=== PATIENT | male | born 1975 | race Caucasian/White ===

== ENCOUNTER 2016-11-11 10:06 | Emergency (ER) | payer MEDICAID ==
[~2016-11-11] VITALS: Ht 167.6 cm; Wt 89.8 kg
[2016-11-11 10:54] LABS: BASOPHIL % 0.5 % (0-2); PLATELET COUNT 190 x10^3mcL (130-400); RED CELL DISTRIBUTION WIDTH 13.1 % (11.5-14.5)
[2016-11-11 11:07] LABS: CALCIUM 8.7 mg/dL (8.5-10.1); CARBON DIOXIDE 21.9 mmol/L (21-32); CHLORIDE SERUM 106 mmol/L (98-107); CREATININE SERUM 1.2 mg/dL (0.7-1.3); GFR1 > 60 mL/min; GLUCOSE SERUM 167 mg/dL (74-106); POTASSIUM SERUM 4.3 mmol/L (3.5-5.1); SODIUM SERUM 139 mmol/L (136-145)
[2016-11-11 11:11] LABS: ALBUMIN 3.6 g/dL (3.4-5.0); ALKALINE PHOSPHATASE 61 U/L (46-116); ALT/SGPT 83 U/L (16-63); AST/SGOT 31 U/L (15-37); BILIRUBIN TOTAL 0.47 mg/dL (0.20-1.00); LIPASE 132 IU/L (73-393); TOTAL PROTEIN, SERUM 7.7 g/dL (6.4-8.2)
[2016-11-11 13:11] VITALS: BP 104/68
== END 2016-11-11 13:24 | disposition home or self-care (01) ==
LOC: ED 10:06
PROVIDERS: Emergency Medicine
DX: N20.0 Calculus of kidney (principal); R03.0 Elevated blood-pressure reading, without diagnosis of hypertension
CPT/HCPCS: J1885; J2405; J7030

== ENCOUNTER 2017-02-21 04:19 | Emergency (ER) | payer OTHER ==
[2017-02-21 06:03] LABS: BASOPHIL % 0.7 % (0-2); PLATELET COUNT 202 x10^3mcL (130-400); RED CELL DISTRIBUTION WIDTH 12.7 % (11.5-14.5)
[2017-02-21 06:18] LABS: CALCIUM 8.9 mg/dL (8.5-10.1); CARBON DIOXIDE 29.2 mmol/L (21-32); CHLORIDE SERUM 103 mmol/L (98-107); CREATININE SERUM 1.1 mg/dL (0.7-1.3); GFR1 > 60 mL/min; GLUCOSE SERUM 111 mg/dL (74-106); POTASSIUM SERUM 4.3 mmol/L (3.5-5.1); SODIUM SERUM 139 mmol/L (136-145)
[2017-02-21 06:23] LABS: ALBUMIN 3.9 g/dL (3.4-5.0); ALKALINE PHOSPHATASE 62 U/L (46-116); ALT/SGPT 76 U/L (16-63); AMYLASE 71 U/L (25-115); AST/SGOT 37 U/L (15-37); BILIRUBIN TOTAL 0.45 mg/dL (0.20-1.00); LIPASE 273 IU/L (73-393)
[2017-02-21 06:25] LABS: TOTAL PROTEIN, SERUM 8.4 g/dL (6.4-8.2)
[2017-02-21 06:27] LABS: microscopic required? NO
[2017-02-21 06:55] LABS: UA SPECIFIC GRAVITY 1.025 (1.005-1.035); urine erythrocyte NEGATIVE (NEGATIVE)
[2017-02-21 07:27] LABS: HDL CHOLESTEROL 50 mg/dL (40-60)
[2017-02-21 07:33] LABS: CHOLESTEROL 207 mg/dL (<200)
[2017-02-21 08:47] VITALS: BP 107/57
== END 2017-02-21 08:47 | disposition home or self-care (01) ==
LOC: ED 04:19
PROVIDERS: Emergency Medicine
DX: K80.20 Calculus of gallbladder without cholecystitis without obstruction (principal)
CPT/HCPCS: 83880; J1885; J7030; Q0092

== ENCOUNTER 2018-01-28 05:31 | Emergency (ER) | payer OTHER ==
[~2018-01-28] VITALS: Ht 177.8 cm; Wt 87.5 kg
[2018-01-28 05:38] VITALS: Ht 177.8 cm; Wt 87.5 kg
[2018-01-28 06:28] LABS: BASOPHIL % 0.6 % (0-2); PLATELET COUNT 207 x10^3mcL (130-400); RED CELL DISTRIBUTION WIDTH 13.3 % (11.5-14.5)
[2018-01-28 06:32] LABS: CALCIUM 9.1 mg/dL (8.5-10.1); CARBON DIOXIDE 24.4 mmol/L (21-32); CHLORIDE SERUM 105 mmol/L (98-107); GFR1 > 60 mL/min; GLUCOSE SERUM 123 mg/dL (74-106); POTASSIUM SERUM 4.1 mmol/L (3.5-5.1); SODIUM SERUM 138 mmol/L (136-145)
[2018-01-28 06:36] LABS: ALBUMIN 3.5 g/dL (3.4-5.0); ALKALINE PHOSPHATASE 65 U/L (46-116); ALT/SGPT 60 U/L (16-63); AST/SGOT 29 U/L (15-37); BILIRUBIN TOTAL 0.33 mg/dL (0.20-1.00); LIPASE 224 IU/L (73-393); TOTAL PROTEIN, SERUM 7.8 g/dL (6.4-8.2)
[2018-01-28 07:56] VITALS: BP 160/90
== END 2018-01-28 07:56 | disposition home or self-care (01) ==
LOC: ED 05:31
PROVIDERS: Emergency Medicine
DX: K80.50 Calculus of bile duct without cholangitis or cholecystitis without obstruction (principal); K80.80 Other cholelithiasis without obstruction
CPT/HCPCS: J1885; J2270; J2405; Q0092

== ENCOUNTER 2019-03-26 11:58 | Emergency (ER) | payer MEDICAID ==
[~2019-03-26] VITALS: Ht 175.3 cm; Wt 88.5 kg
[2019-03-26 12:10] VITALS: Ht 175.3 cm; Wt 88.5 kg
[2019-03-26 12:27] LABS: BASOPHIL % 0.3 % (0-2); PLATELET COUNT 210 x10^3mcL (130-400)
[2019-03-26 12:35] LABS: CALCIUM 8.6 mg/dL (8.5-10.1); CARBON DIOXIDE 26.5 mmol/L (21-32); CHLORIDE SERUM 103 mmol/L (98-107); GFR1 > 60 mL/min; GLUCOSE SERUM 160 mg/dL (74-106); POTASSIUM SERUM 4.4 mmol/L (3.5-5.1); SODIUM SERUM 138 mmol/L (136-145)
[2019-03-26 12:42] LABS: ALBUMIN 3.4 g/dL (3.4-5.0); ALKALINE PHOSPHATASE 66 U/L (46-116); ALT/SGPT 65 U/L (16-63); AST/SGOT 27 U/L (15-37); BILIRUBIN TOTAL 0.3 mg/dL (0.20-1.00); LIPASE 127 IU/L (73-393)
[2019-03-26 12:51] LABS: TOTAL PROTEIN, SERUM 8.6 g/dL (6.4-8.2)
[2019-03-26 16:41] VITALS: BP 110/67
== END 2019-03-26 16:30 | disposition home or self-care (01) ==
LOC: ED 11:58
PROVIDERS: Emergency Medicine
DX: K80.20 Calculus of gallbladder without cholecystitis without obstruction (principal); R11.2 Nausea with vomiting, unspecified; Z87.442 Personal history of urinary calculi
CPT/HCPCS: J2270; J2405; J3010; J3490; J7030; Q0092